=== PATIENT | male | born 1990 | race Caucasian/White ===

== ENCOUNTER 2020-03-18 20:44 | Emergency (ER) | payer OTHER ==
[~2020-03-18] VITALS: Ht 162.6 cm; Wt 82.0 kg
[2020-03-18 22:08] VITALS: BP 113/77
[2020-03-18] MEDS ORDERED: KETOROLAC 30MG/ML VIAL IM ONE (23:30)
== END 2020-03-19 00:38 | disposition home or self-care (01) ==
LOC: ER 20:44
DX: S40.012A Contusion of left shoulder, initial encounter (principal); S70.02XA Contusion of left hip, initial encounter; W01.0XXA Fall on same level from slipping, tripping and stumbling without subsequent striking against object, initial encounter; Y93.89 Activity, other specified; Y92.018 Other place in single-family (private) house as the place of occurrence of the external cause; Y99.8 Other external cause status
CPT/HCPCS: 96372; 99283; J1885